=== PATIENT | male | born 1975 | race Caucasian/White ===

== ENCOUNTER 2016-05-27 11:33 | Emergency (ER) | payer OTHER ==
[~2016-05-27] VITALS: Ht 177.8 cm; Wt 99.8 kg
[~2016-05-27 11:33] MED LIST: ARTHROTEC 75 MG1 TAB PO; CYCLOBENZAPRINE10 M1 PO; DICLOFENAC SODI75 M2 PO; ENDOCET 325 MG-1 TA1 PO; FLEXERIL10 MG PO; NORFLEX100 MG PO; PERCOCET 325 MG1 TA2 PO; PERCOCET 5-3251 EACH PO; VOLTAREN75 MG PO
[2016-05-27 11:44] VITALS: BP 121/74
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
[2016-05-27] MEDS ORDERED: MOBIC15 M1 PO (12:12)
[2016-05-27] MEDS ORDERED: CYCLOBENZAPRINE10 M1 PO (12:12)
[2016-05-27] MEDS ORDERED: PERCOCET 5-3251 EACH PO (12:12)
== END 2016-05-27 12:16 ==
LOC: ERH 11:33
DX: M54.5 Low back pain (principal)
CPT/HCPCS: 96372; J1885

== ENCOUNTER 2016-05-29 17:03 | Emergency (ER) | payer OTHER ==
[~2016-05-29] VITALS: Ht 177.8 cm; Wt 99.8 kg
[~2016-05-29 17:03] MED LIST changes: +MOBIC15 M1 PO
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
[2016-05-29 20:00] VITALS: BP 119/82
[2016-05-29] MEDS ORDERED: TRAMADOL HCL50 M1 PO (20:00)
== END 2016-05-29 21:02 ==
LOC: ERH 17:03
DX: M54.5 Low back pain (principal)
CPT/HCPCS: 71100-LT; 96372; 96374; J1885

== ENCOUNTER 2016-08-18 19:49 | Emergency (ER) | payer OTHER ==
[~2016-08-18] VITALS: Ht 177.8 cm; Wt 102.1 kg
[~2016-08-18 19:49] MED LIST changes: +TRAMADOL HCL50 M1 PO
[2016-08-18 20:21] VITALS: BP 118/82
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
[2016-08-18] MEDS ORDERED: MOBIC15 M1 PO (21:32)
[2016-08-18] MEDS ORDERED: CYCLOBENZAPRINE10 M1 PO (21:32)
[2016-08-18] MEDS ORDERED: PERCOCET 5-3251 EACH PO (21:32)
== END 2016-08-18 21:48 ==
LOC: ERH 19:49
DX: M54.5 Low back pain (principal)
CPT/HCPCS: J1885

== ENCOUNTER 2016-09-18 17:11 | Emergency (ER) | payer OTHER ==
[~2016-09-18] VITALS: Ht 177.8 cm; Wt 117.9 kg
[2016-09-18 17:37] VITALS: BP 124/81
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
[2016-09-18] MEDS ORDERED: DILAUDID2 M1 PO (19:04)
[2016-09-18] MEDS ORDERED: ROBAXIN500 M1 PO (19:04)
[2016-09-18] MEDS ORDERED: MEDROL4 M2 PO (19:04)
== END 2016-09-18 20:02 ==
LOC: ERH 17:11
DX: G89.29 Other chronic pain (principal); M54.5 Low back pain
CPT/HCPCS: 96372; J1885; J3360

== ENCOUNTER 2016-11-19 21:30 | Emergency (ER) | payer OTHER ==
[~2016-11-19] VITALS: Ht 177.8 cm; Wt 86.2 kg
[~2016-11-19 21:30] MED LIST changes: +DILAUDID2 M1 PO; +MEDROL4 M2 PO; +ROBAXIN500 M1 PO
[2016-11-19 21:44] VITALS: BP 124/80
[2016-11-19] MEDS ORDERED: ADVIL200 M1 PO (22:08)
[2016-11-19] MEDS ORDERED: PERCOCET 5-3251 EACH PO (22:20)
[2016-11-19] MEDS ORDERED: VALIUM5 M2 PO (22:20)
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
== END 2016-11-19 22:34 ==
LOC: ERH 21:30
DX: M54.5 Low back pain (principal)